=== PATIENT | male | born 1990 | race Caucasian/White ===

== ENCOUNTER 2018-03-25 11:11 | Emergency (ER) | payer BC ==
[~2018-03-25] VITALS: Ht 177.8 cm; Wt 106.4 kg
[2018-03-25] MEDS ORDERED: ANTIBIOTIC (11:21)
[2018-03-25 12:24] VITALS: BP 131/87
== END 2018-03-25 12:18 | disposition home or self-care (01) ==
LOC: ED 11:11
DX: S20.219A Contusion of unspecified front wall of thorax, initial encounter (principal); S80.01XA Contusion of right knee, initial encounter; Z87.39 Personal history of other diseases of the musculoskeletal system and connective tissue; Z98.890 Other specified postprocedural states; V03.99XA Pedestrian with other conveyance injured in collision with car, pick-up truck or van, unspecified whether traffic or nontraffic accident, initial encounter